=== PATIENT | female | born 1965 | race Caucasian/White ===

== ENCOUNTER 2016-07-23 08:38 | Emergency (ER) | payer OTHER ==
[~2016-07-23] VITALS: Ht 157.5 cm; Wt 51.3 kg
[2016-07-23] MEDS ORDERED: LIDOCAINE-HC 3-11 GM PR (09:38)
[2016-07-23 09:49] VITALS: BP 137/50
== END 2016-07-23 09:49 | disposition home or self-care (01) ==
LOC: EME 08:38
DX: K62.81 Anal sphincter tear (healed) (nontraumatic) (old) (principal); F17.200 Nicotine dependence, unspecified, uncomplicated
CPT/HCPCS: 99281; 99283